=== PATIENT | male | born 1945 | race Caucasian/White ===

== ENCOUNTER 2016-10-26 16:39 | Emergency (ER) | payer MEDICARE, OTHER ==
[~2016-10-26 16:39] MED LIST: ADULT LOW DOSE81 MG PO; AMIGESIC750 MG; ASPIRIN325 MG PO; ASPIRIN81 MG PO; ATORVASTATIN CA40 MG PO; AVELOX400 MG PO; B COMPLEX1 CAP PO; BUSPIRONE HCL15 M2 PO; BUSPIRONE HCL7.5 MG PO; CELEXA20 M1 PO; CIPRO250 M1 PO; COLACE100 MG PO; COUMADIN5 MG PO; CPAP; DEPRESSION MEDICINE; DOCUSATE CALCI100 MG; EFFEXOR37.5 MG PO; ENTERIC COATED325 MG; FISH OIL 1,0001 CAP; FLAX SEED OIL1000 MG PO; FLAXSEED OIL1000 MG PO; GAVILAX17 G1 PO; H PO; HYDROCHLOROTHIA25 MG; HYDROCHLOROTHIA25 MG PO; LEVAQUIN500 MG PO; LISINOPRIL10 MG PO; LISINOPRIL20 MG; LISINOPRIL20 MG PO; LOVENOX; LOVENOX80 MG/0.8 SC; METOPROLOL TART25 MG PO; MIRALAX17 G1 PO; MULTIVITAMIN1 CAP; NORCO 5/325 TAB1 TAB PO; OXYBUTYNIN CHLOR5 MG PO; OXYCODONE/APAP PO; OXYTROL1 PATCH.BW TD; PERCOCET 5/3251 TAB PO; PRINIVIL10 M1 PO; SALSALATE750 MG; SALSALATE750 MG PO; TOPROL XL25 M1 PO; TRAMADOL HCL50 M1 PO; ZOCOR40 MG PO; ZOCOR5 MG PO; ZOCOR80 MG; ZOCOR80 MG PO; [UNRECOGNIZED DRUG - OTHER] PO
[2016-10-26] MEDS ORDERED: GLUCOPHAGE850 M1 PO (17:04)
[2016-10-26] MEDS ORDERED: MULTIVITAMINS1 EAC6 PO (17:05)
[2016-10-26] MEDS ORDERED: ONGLYZA5 M1 PO (17:06)
[2016-10-26 17:18] LABS: CREATININE 1.25 mg/dl (0.60-1.30); eGFR VALUE FOR BLACK 66 mL/Min
[2016-10-26 17:20] LABS: URINE BILIRUBIN NEGATIVE (NEG); URINE BLOOD LARGE (NEG); URINE GLUCOSE (UA) NEGATIVE (NEG); URINE KETONE NEGATIVE (NEG); URINE LEUKOCYTE ESTERASE NEGATIVE (NEG); URINE NITRITE NEGATIVE (NEG); URINE PROTEIN MODERATE (NEG); URINE SPECIFIC GRAVITY 1.025 (1.003-1.030)
[2016-10-26 17:21] LABS: URINE APPEARANCE HAZY; URINE COLOR YELLOW
[2016-10-26 17:30] LABS: URINE AMORPHOUS 2+; URINE MUCUS 1+; URINE RBC FULL FIELD /[HPF] (0-5)
[2016-10-26] MEDS ORDERED: HYDROCODON-ACE1 EA16 PO (18:13)
== END 2016-10-26 18:53 ==
LOC: EDMED 16:39
PROVIDERS: Emergency Medicine
DX: N13.2 Hydronephrosis with renal and ureteral calculous obstruction (principal); I25.84 Coronary atherosclerosis due to calcified coronary lesion; Z87.442 Personal history of urinary calculi
CPT/HCPCS: J1885; J2405

== ENCOUNTER 2017-02-06 22:53 | Emergency (ER) | payer MEDICARE, OTHER ==
[~2017-02-06 22:53] MED LIST changes: +GLUCOPHAGE850 M1 PO; +HYDROCODON-ACE1 EA16 PO; +MULTIVITAMINS1 EAC6 PO; +ONGLYZA5 M1 PO
[2017-02-06] MEDS ORDERED: INSULIN SC (23:18)
[2017-02-07] MEDS ORDERED: PERCOCET 5-3251 EACH PO (00:30)
== END 2017-02-07 00:38 ==
LOC: EDMED 22:53
DX: S22.42XA Multiple fractures of ribs, left side, initial encounter for closed fracture (principal); E11.9 Type 2 diabetes mellitus without complications; I10 Essential (primary) hypertension; W19.XXXA Unspecified fall, initial encounter; Y92.009 Unspecified place in unspecified non-institutional (private) residence as the place of occurrence of the external cause